=== PATIENT | male | born 1995 | race Caucasian/White ===

== ENCOUNTER 2024-04-30 09:58 | Inpatient (IN) | payer OTHER, SELFPAY ==
[~2024-04-30] VITALS: Ht 165.1 cm; Wt 96.8 kg
[2024-04-30 10:14] VITALS: PULSE 123; RESP 16; O2SAT 97
--- NOTE | 2024-04-30 11:24 | ED.PDOC ---
History of present illness HPI Comments 29-year-old male presents with a chief complaint of nausea and vomiting x onset last night with associated hyperglycemia x 1 week. Patient is also complaing of generalized abdomen pain with frequent urination and thirst. Last HGB A1C was 7.8 x 3 months ago. Accucheck at home registered "HIGH". Chief Complaint: Nausea/Vomiting Time Seen by MD: 10:55 Primary Care Provider: FAMILIA History of present illness: Medications, Allergies Allergies: Coded Allergies: NO KNOWN ALLERGIES (Unverified , 04/30/24) Information Source: Patient Mode of Arrival: Ambulatory Timing: Days Duration: Since onset Prehospital treatment: Accucheck Russell: Shaky Symptoms: Anxious, Shaky History of: Diabetes Associated signs and symptoms: Nausea, Vomiting Past Medical History PAST MEDICAL HISTORY: DM Surgical History: Denies all surgeries Family History Family History: Reviewed,noncontributory to illness Social History Smoker: Non-Smoker Alcohol: Denies ETOH Use Drugs: Denies Drug Use Lives In: Home Constitutional: denies: chills, diaphoresis, fatigue, fever, malaise, sweats, w eakness, others EENTM: denies: blurred vision, double vision, ear bleeding, ear discharge, ear drainage, ear pain, ear ringing, eye pain, eye redness, hearing loss, mouth pain, mouth swelling, nasal discharge, nose bleeding, nose congestion, nose pain, photophobia, tearing, throat pain, throat swelling, voice changes, others Respiratory: denies: cough, hemoptysis, orthopnea, SOB at rest, shortness of breath, SOB with excertion, stridor, wheezing, others Cardiovascular: denies: chest pain, dizzy spells, diaphoresis, Dyspnea on exertion, edema, irregular heart beat, left arm pain, lightheadedness, palpitations, PND, syncope, others Gastrointestinal: reports: nausea, vomiting; denies: abdomen distended, abdominal pain, blood streaked bowels, constipated, diarrhea, dysphagia, difficulty swallowing, hematemesis, melena, poor appetite, poor fluid intake, rectal bleeding, rectal pain, others Genitourinary: denies: burning, dysuria, flank pain, frequency, hematuria, incontinence, penile discharge, penile sore, pain, testicle pain, testicle swelling, urgency, others Neurological: denies: dizziness, fainting, headache, left sided numbness, left sided weakness, numbness, paresthesia, pre-existing deficit, right sided numbness, right sided weakness, seizure, speech problems, tingling, tremors, weakness, others Musculoskeletal: denies: back pain, gout, joint pain, joint swelling, muscle pain, muscle stiffness, neck pain, others Integumetry: denies: bruises, change in color, change in hair/nails, dryness, laceration, lesions, lumps, rash, wounds, others Allergic/Immunocompromised: denies: Difficulty Healing, Frequent Infections, Hives, Itching, others Hematologic/Lymphatic: denies: anemia, blood clots, easy bleeding, easy bruising, swollen glands, others Endocrine: reports: excessive thirst, excessive urination; denies: excessive hu nger, excessive sweating, flushing, intolerance to cold, intolerance to heat, unexplained weight gain, unexplained weight loss, others Psychiatric: denies: anxiety, bipolar disorder, depression, hopeless, panic disorder, schizophrenia, sleepless, suicidal, others All Other Systems: Reviewed and Negative Physical Exam General Appearance: Moderate Distress, Normal HEENT: Normal ENT Inspection Neck: NOT DONE Respiratory: No Respiratory Distress Cardiovascular: Regular Rate/Rhythm Breast Exam: Deferred Gastrointestinal: Non Tender, Soft Genitalia: Deferred Pelvic: Deferred Rectal: Deferred Extremities: No calf tenderness, Normal capillary refill, Normal inspection, Normal range of motion, Non-tender, No pedal edema Neurologic: Alert, meter changes records clerk II-XII nml as Tested, No Motor Deficits, Normal Affect, Normal Mood, No Sensory Deficits Cerebellar Function: NOT DONE Reflexes: NOT DONE Skin: Dry, Normal Color Lymphatic: NOT DONE Was a procedure done? Was a procedure done?: No Differential Diagnosis (DM) Differential Diagnosis: Appendicitis, Gastritis, Gastroenteritis Other Differential Diagnosis Diabetic ketoacidosis, X-Ray, Labs, Meds, VS Vital Signs Date Time Temp Pulse Resp B/P (MAP) Pulse Ox O2 Delivery O2 Flow Rate FiO2 04/30/24 12:46 97.6 110 19 127/81 (96) 97 97.6 04/30/24 10:14 123 16 97 Room Air* 0 21 04/30/24 10:14 97.6 129 18 126/91 (103) 95 97.6 04/30/24 10:10 98.0 134 26 136/81 (99) 98 Lab Test 04/30/24 12:25 04/30/24 12:17 04/30/24 10:07 04/30/24 10:00 Range/Units Blood Gas Specimen Type Arterial Blood Gas Sample Site Left radial Blood Gas Patient Temperature 37.0 Arterial Blood Date Drawn [id number] Arterial Blood pH 7.211 *L 7.350-7.450 Arterial Blood Partial Pressure CO2 17.5 *L 35.0-48.0 mmHg Arterial Blood Partial Pressure O2 115.5 H 83.0-108.0 mmHg Arterial Blood HCO3 6.9 L 21.0-28.0 mmol/L Arterial Blood Oxygen Saturation 97.8 94.0-98.0 % Arterial Blood Base Excess -18.2 L -2.0-3.0 mmol/L Arterial Blood Oxyhemoglobin 96.9 94.0-98.0 % Arterial Blood Carboxyhemoglobin 0.2 L 0.5-1.5 % Arterial Blood Methemoglobin 0.7 0.0-1.5 % Isidro Test Yes Blood Gas Total Hemoglobin 17.90 H 13.5-17.5 g/dL Blood Gas Modality Room air FiO2 % 21.0 Blood Gas Critical Value Read Back Yes Blood Gas Notified Whom Blood Gas Notified Time [id number] Blood Gas Notified By Base Loader one[place] White Blood Count 12.3 H 4.4-10.8 10^3/uL Red Blood Count 6.40 H 4.5-5.90 10^6/uL Hemoglobin 17.9 H 13.5-17.5 g/dL Hematocrit 52.7 41.0-53.0 % Mean Corpuscular Volume 82.3 80.0-100.0 fL Mean Corpuscular Hemoglobin 28.0 28.0-32.0 pg Mean Corpuscular Hemoglobin Concent 34.0 32.0-36.0 g/dL Red Cell Distribution Width 14.9 H 11.8-14.3 % Platelet Count 222 140-450 10^3/uL Mean Platelet Volume 10.1 6.9-10.8 fL Neutrophils (%) (Auto) 84.4 H 37.0-80.0 % Lymphocytes (%) (Auto) 9.2 L 10.0-50.0 % Monocytes (%) (Auto) 6.0 0.0-12.0 % Eosinophils (%) (Auto) 0.1 0.0-7.0 % Basophils (%) (Auto) 0.3 0.0-2.0 % Neutrophils # (Auto) 10.3 H 1.6-8.6 10 ^3/uL Lymphocytes # (Auto) 1.1 0.4-5.4 10 ^3/uL Monocytes # (Auto) 0.7 0-1.3 10 ^3/uL Eosinophils # (Auto) 0 0-0.8 10 ^3/uL Basophils # (Auto) 0 0-0.2 10 ^3/uL Nucleated Red Blood Cells 0.2 % Sodium Level 135 L 136-145 mmol/L Potassium Level 3.9 3.5-5.1 mmol/L Chloride Level 105 98-107 mmol/L Carbon Dioxide Level 11 L 20-31 mmol/L Anion Gap 19 H 5-15 Blood Urea Nitrogen 12 9-23 mg/dL Creatinine 1.12 0.700-1.30 mg/dL Glomerular Filtration Rate Calc 90 >90 mL/min BUN/Creatinine Ratio 10.7 10.0-20.0 Serum Glucose 166 H 74-106 mg/dL Serum Osmolality Pending Lactic Acid Level 1.1 0.4-2.0 mmol/L Calcium Level 9.6 8.7-10.4 mg/dL Phosphorus Level Pending Magnesium Level 2.2 1.6-2.6 mg/dL Total Bilirubin 0.6 0.2-1.0 mg/dL Aspartate Amino Transferase (AST) 21 13-40 U/L Alanine Aminotransferase (ALT) 58 H 7-40 U/L Alkaline Phosphatase 142 H 46-116 U/L Total Protein 9.0 H 5.7-8.2 g/dL Albumin 5.4 H 3.2-4.8 g/dL Beta-Hydroxybutyric Acid > 4.500 H < 0.4 mmol/L POC Glucose 182 H 70-106 mg/dl Urine Color Light-yellow Yellow Urine Clarity Clear Clear Urine pH 5.5 5.0-9.0 Urine Specific [place] 1.025 1.001-1.035 Urine Protein 2+ H Negative Urine Ketones 4+ H Negative Urine Blood 1+ H Negative /uL Urine Nitrite Negative Negative Urine Bilirubin Negative Negative Urine Urobilinogen Normal Negative mg/dL Urine Leukocyte Esterase Negative Negative /uL Urine RBC <1 0 - 3 /hpf Urine Microscopic WBC 1 0-3 /HPF Urine Squamous Epithelial Cells Few <5 /hpf Urine Bacteria Few H None Seen /hpf Urine Hyaline Casts Few 0 - 2 /lpf Urine Mucus Few None Seen Urine Glucose 4+ H Normal mg/dL Current Medications Medications (Trade) Dose Ordered Sig/Nicholas Route Start Time Stop Time Status Last Admin Sodium Chloride 1,000 ml @ 1,000 mls/hr Q1H ONCE IV 04/30/24 12:00 04/30/24 13:01 DC 04/30/24 12:07 Time of 1ST Reevaluation: 11:25 Reevaluation 1ST: Unchanged Patient Education/Counseling: Diagnosis, Treatment, Prognosis Family Education/Counseling: Diagnosis, Treatment, Prognosis Departure 1 Departure Time of Disposition: 14:43 Impression: Primary Impression: Diabetic ketoacidosis Disposition: 09 ADMITTED INPATIENT Condition: Critical Critical Care Note Critical Care Time?: No Stability Stability form required: No Heart Score Heart Score: Heart Score Response (Comments) Value History N/A 0 EKG N/A 0 Age N/A 0 Risk Factors N/A 0 Troponin N/A 0 Total 0 I personally scribed for DESTINY ANTUNEZ MD ([email or web address]) on 04/30/24 at 11:24. Electronically submitted by Telly Rehman ([email or web address]). DESTINY ANTUNEZ MD Apr 30, 2024 11:24
[2024-04-30] MEDS: SODIUM CHLORIDE 0.9% 1,000 ML IV ONE (12:07)
[2024-04-30 12:26] LABS: Basophils # (auto) 0 10 ^3/uL (0-0.2); Eosinophils # (auto) 0 10 ^3/uL (0-0.8); Hemoglobin 17.9 g/dL (13.5-17.5); Red Cell Distribution Width 14.9 % (11.8-14.3)
[2024-04-30 12:28] LABS: Basophils % (auto) 0.3 % (0.0-2.0); Eosinophils % (auto) 0.1 % (0.0-7.0); Hematocrit 52.7 % (41.0-53.0); Lymphocytes # (auto) 1.1 10 ^3/uL (0.4-5.4); Lymphocytes % (auto) 9.2 % (10.0-50.0); Mean Corpuscular Volume 82.3 fL (80.0-100.0); Monocytes # (auto) 0.7 10 ^3/uL (0-1.3); Neutrophils # (auto) 10.3 10 ^3/uL (1.6-8.6); Neutrophils % (auto) 84.4 % (37.0-80.0); Nucleated Red Blood Cells % 0.2 %; Platelet Count (auto) 222 10^3/uL (140-450); White Blood Cell 12.3 10^3/uL (4.4-10.8)
[2024-04-30 12:30] LABS: Base Excess -18.2 mmol/L (-2.0-3.0)
[2024-04-30 12:44] LABS: Anion Gap 19 (5-15); Aspartate Aminotransferase 21 U/L (13-40); BUN/Creatinine Ratio 10.7 (10.0-20.0); Blood Urea Nitrogen 12 mg/dL (9-23); Calcium 9.6 mg/dL (8.7-10.4); Chloride 105 mmol/L (98-107); Magnesium 2.2 mg/dL (1.6-2.6); Potassium 3.9 mmol/L (3.5-5.1)
[2024-04-30 12:45] LABS: Alanine Aminotransferase 58 U/L (7-40); Albumin 5.4 g/dL (3.2-4.8); Alkaline Phosphatase 142 U/L (46-116); Bilirubin, Total 0.6 mg/dL (0.2-1.0); Carbon Dioxide 11 mmol/L (20-31); Glucose 166 mg/dL (74-106); Sodium 135 mmol/L (136-145)
[2024-04-30 13:56] LABS: Urine Bacteria FEW /hpf (None Seen); Urine Blood 1+ /uL (Negative); Urine Clarity Clear (Clear); Urine Color Light-Yellow (Yellow); Urine Hyaline Cast FEW /lpf (0 - 2); Urine Mucus FEW (None Seen); Urine Protein, UAD 2+ (Negative); Urine Specific Gravity 1.025 (1.001-1.035); Urine Squamous Epithelial Cell FEW /hpf (<5); Urine Urobilinogen Normal (Negative); Urine WBC 1 /HPF (0-3); Urine pH 5.5 (5.0-9.0)
[2024-04-30] MEDS ORDERED: DEXTROSE (50%) 50ML SYRG IV PRN (14:45)
[2024-04-30] MEDS: ONDANSETRON HCL 4 MG/2 ML VIAL IV ONE (15:52)
[2024-04-30 16:44] VITALS: PULSE 117; RESP 24; O2SAT 98
[2024-04-30 16:49] LABS: Chloride 106 mmol/L (98-107); Potassium 4.2 mmol/L (3.5-5.1); Sodium 136 mmol/L (136-145)
[2024-04-30 16:50] LABS: Anion Gap 17 (5-15); Calcium 9.5 mg/dL (8.7-10.4)
[2024-04-30] MEDS: MAGNESIUM SULFATE 1GM/100ML 200 ML IV ONE (16:51)
[2024-04-30 16:55] LABS: BUN/Creatinine Ratio 10.3 (10.0-20.0); Blood Urea Nitrogen 12 mg/dL (9-23); Carbon Dioxide 13 mmol/L (20-31); Glucose 148 mg/dL (74-106)
[2024-04-30] MEDS: ACCU-CHEK COMFORT CURVE STRIP VI SCH (17:16)
[2024-04-30] MEDS: INSULIN DRIP 100 UNIT/100ML 100 ML IV SCH (17:17)
[2024-04-30] MEDS: D5W 5% 1,000 ML IV ONE (17:21)
[2024-04-30] MEDS ORDERED: ACETAMINOPHEN 325 MG TAB PO PRN (18:00)
[2024-04-30] MEDS ORDERED: ONDANSETRON HCL 4 MG/2 ML VIAL IV PRN (18:00)
--- NOTE | 2024-04-30 18:03 | DVHHP2 ---
History of Present Illness Reason for Visit: Elevated blood sugar History of Present Illness Garth Allen is a 29-year-old male with past medical history of hyperlipidemia and diabetes who presents to the ED for hyperglycemia, nausea, and vomiting x1 day. Patient reports that 4 days ago he had epigastric pain but has since been relieved since yesterday. Patient also reports that he vomited brown contents. When asked about his diabetes he states that he was supposed to take metformin but he just does not care anymore. Mom at the bedside and she states that when he was trying to take his rating on the Accu-Chek it was over the limits. Patient denies any chest pain, shortness of breath, fever, chills, lightheadedness, weakness, dizziness, thirst, hunger, shakiness, tremors, and tingling. Patient also reported that he made a PCP appointment for May 10. Cardiovascular: hyperipidemia Endocrine: Diabetes Past Surgical History: None Family History: DM, Other (Dad with diabetes) Smoke: No ALCOHOL: occassional Drugs: None Lives: with Family Domestic Violence: Neg Review of Systems Constitutional: Yes: Other (Elevated blood sugar); No: Fever, Chills, Sweats, Weakness, Malaise Eyes: No: Pain, Vision change, Conjunctivae inflammation, Eyelid inflammation, Other, Redness ENT: No: Ear pain, Ear discharge, Nose pain, Nose discharge, Nose congestion, Mouth pain, Mouth swelling, Throat pain, Throat swelling, Other Respiratory: No: Cough, Dry, Shortness of breath, SOB with excertion, Wheezing, Hemoptysis, Pleuritic Pain, Sputum, Wheezing, Other Cardiovascular: No: Chest Pain, Palpitations, Orthopnea, Paroxysmal Noc. Dyspnea, Edema, Lt Headedness, Other Gastrointestinal: Nausea, Vomiting; No: Abdominal Pain, Diarrhea, Constipation, Melena, Hematochezia, Other Genitourinary: No Dysuria, No Frequency, No Incontinence, No Hematuria, No Retention, No Other Musculoskeletal: No: other, neck pain, shoulder pain, arm pain, back pain, hand pain, leg pain, foot pain Skin: No: Rash, Lesions, Jaundice, Bruising, Other Neurological: No: Weakness, Numbness, Incoordination, Change in speech, Confusion, Seizures, Other Allergies: Coded Allergies: NO KNOWN ALLERGIES (Unverified , 04/30/24) Medications Current Medications Medications Dose Ordered Sig/Nicholas Route Start Time Stop Time Status Last Admin Dose Admin Sodium Chloride 1,000 ml @ 500 mls/hr Q2H IV 04/30/24 14:45 04/30/24 18:44 Insulin Human (Reg)/Sodium Chloride 100 ml @ 0.5 mls/hr Q24H IV 04/30/24 14:45 04/30/24 17:17 1.5 MLS/HR Dextrose 50 ml UD PRN IV 04/30/24 14:45 Diagnostic Test (Pha) 1 strip Q90MIN 04/30/24 15:00 04/30/24 17:16 1 STRIP Exam Vital Signs Vital Signs Date Time Temp Pulse Resp B/P (MAP) Pulse Ox O2 Delivery O2 Flow Rate FiO2 04/30/24 16:44 117 24 98 Room Air* 0 21 04/30/24 12:46 97.6 127/81 (96) 97.6 General Appearance: Alert, Oriented X3, Cooperative, No acute distress HEENT: Atraumatic, PERRLA, EOMI, Mucous membr. moist/pink Respiratory: Clear to auscultation, Normal air movement Cardiovascular: Regular rate, Normal S1, Normal S2, No murmurs Abdominal: Normal bowel sounds, Soft, No tenderness, No hepatospenomegaly, No masses Extremities: No clubbing, No cyanosis, No edema, Normal pulses, No tenderness/ swelling Skin: No rashes, No breakdown, No significant lesion Neuro: Normal gait, Normal speech, Strength at 5/5 X4 ext, Normal tone, Sensation intact Psych/Mental Status: Mental status NL, Mood NL Labs/Xrays Labs Test 04/30/24 17:14 04/30/24 15:39 04/30/24 12:25 04/30/24 12:17 Range/Units POC Glucose 158 H 70-106 mg/dl Sodium Level 136 136-145 mmol/L Potassium Level 4.2 3.5-5.1 mmol/L Chloride Level 106 98-107 mmol/L Carbon Dioxide Level 13 L 20-31 mmol/L Anion Gap 17 H 5-15 Blood Urea Nitrogen 12 9-23 mg/dL Creatinine 1.16 0.700-1.30 mg/dL Glomerular Filtration Rate Calc 86 >90 mL/min BUN/Creatinine Ratio 10.3 10.0-20.0 Serum Glucose 148 H 74-106 mg/dL Serum Osmolality 302 H 278-298 mOsm/kg Calcium Level 9.5 8.7-10.4 mg/dL Blood Gas Specimen Type Arterial Blood Gas Sample Site Left radial Blood Gas Patient Temperature 37.0 Arterial Blood Date Drawn [id number] Arterial Blood pH 7.211 *L 7.350-7.450 Arterial Blood Partial Pressure CO2 17.5 *L 35.0-48.0 mmHg Arterial Blood Partial Pressure O2 115.5 H 83.0-108.0 mmHg Arterial Blood HCO3 6.9 L 21.0-28.0 mmol/L Arterial Blood Oxygen Saturation 97.8 94.0-98.0 % Arterial Blood Base Excess -18.2 L -2.0-3.0 mmol/L Arterial Blood Oxyhemoglobin 96.9 94.0-98.0 % Arterial Blood Carboxyhemoglobin 0.2 L 0.5-1.5 % Arterial Blood Methemoglobin 0.7 0.0-1.5 % Isidro Test Yes Blood Gas Total Hemoglobin 17.90 H 13.5-17.5 g/dL Blood Gas Modality Room air FiO2 % 21.0 Blood Gas Critical Value Read Back Yes Blood Gas Notified Whom Blood Gas Notified Time [id number] Blood Gas Notified By Marshall mohamud White Blood Count 12.3 H 4.4-10.8 10^3/uL Red Blood Count 6.40 H 4.5-5.90 10^6/uL Hemoglobin 17.9 H 13.5-17.5 g/dL Hematocrit 52.7 41.0-53.0 % Mean Corpuscular Volume 82.3 80.0-100.0 fL Mean Corpuscular Hemoglobin 28.0 28.0-32.0 pg Mean Corpuscular Hemoglobin Concent 34.0 32.0-36.0 g/dL Red Cell Distribution Width 14.9 H 11.8-14.3 % Platelet Count 222 140-450 10^3/uL Mean Platelet Volume 10.1 6.9-10.8 fL Neutrophils (%) (Auto) 84.4 H 37.0-80.0 % Lymphocytes (%) (Auto) 9.2 L 10.0-50.0 % Monocytes (%) (Auto) 6.0 0.0-12.0 % Eosinophils (%) (Auto) 0.1 0.0-7.0 % Basophils (%) (Auto) 0.3 0.0-2.0 % Neutrophils # (Auto) 10.3 H 1.6-8.6 10 ^3/uL Lymphocytes # (Auto) 1.1 0.4-5.4 10 ^3/uL Monocytes # (Auto) 0.7 0-1.3 10 ^3/uL Eosinophils # (Auto) 0 0-0.8 10 ^3/uL Basophils # (Auto) 0 0-0.2 10 ^3/uL Nucleated Red Blood Cells 0.2 % Lactic Acid Level 1.1 0.4-2.0 mmol/L Phosphorus Level 3.3 2.4-5.1 mg/dL Magnesium Level 2.2 1.6-2.6 mg/dL Total Bilirubin 0.6 0.2-1.0 mg/dL Aspartate Amino Transferase (AST) 21 13-40 U/L Alanine Aminotransferase (ALT) 58 H 7-40 U/L Alkaline Phosphatase 142 H 46-116 U/L Total Protein 9.0 H 5.7-8.2 g/dL Albumin 5.4 H 3.2-4.8 g/dL Beta-Hydroxybutyric Acid > 4.500 H < 0.4 mmol/L Test 04/30/24 10:00 Range/Units Urine Color Light-yellow Yellow Urine Clarity Clear Clear Urine pH 5.5 5.0-9.0 Urine Specific [place] 1.025 1.001-1.035 Urine Protein 2+ H Negative Urine Ketones 4+ H Negative Urine Blood 1+ H Negative /uL Urine Nitrite Negative Negative Urine Bilirubin Negative Negative Urine Urobilinogen Normal Negative mg/dL Urine Leukocyte Esterase Negative Negative /uL Urine RBC <1 0 - 3 /hpf Urine Microscopic WBC 1 0-3 /HPF Urine Squamous Epithelial Cells Few <5 /hpf Urine Bacteria Few H None Seen /hpf Urine Hyaline Casts Few 0 - 2 /lpf Urine Mucus Few None Seen Urine Glucose 4+ H Normal mg/dL Assessment/Plan Assessment/Plan Assessment/Plan: DKA with uncontrolled DM Type 2 Lactic acidosis d/t uncontrolled DM2 Insulin drip protocol Anion gap open HgbA1C ISS and accuchecks UA Dextrose given in ED Antiemetics Mag Mag sulfate NS 2 L given in ED BNP Neuro checks ABG Osmolality Phos IV fluids A.m. labs Beta hydroxy seed pelleter IV antibiotics-ceftriaxone Chronic hyperlipidemia Continue home medication FEN/PPX Diet ivf PUD ppx Protonix DVT ppx not indicated patient ambulating Plan discussed with: Patient, Other Date of Service: Apr 30, 2024 Billing Provider: JOSIAH JUDGE Common Visit Codes: [id number] INP/OBS CARE (HIGH) JOSIAH JUDGE Apr 30, 2024 18:03
[2024-04-30] MEDS ORDERED: CALC0.5C PO (18:04)
[2024-04-30] MEDS ORDERED: ATOR20TA50 (18:04)
[2024-04-30] MEDS: SODIUM CHLORIDE 0.9% 1,000 ML IV SCH ×2 (18:21→19:40)
[2024-04-30 19:04] LABS: Potassium 3.8 mmol/L (3.5-5.1); Sodium 137 mmol/L (136-145)
[2024-04-30 19:05] LABS: Anion Gap 18 (5-15)
[2024-04-30] MEDS: cefTRIAXone 1GM/50ML D5W 50 ML IV ONE (19:09)
[2024-04-30 19:10] LABS: BUN/Creatinine Ratio 9.8 (10.0-20.0); Blood Urea Nitrogen 9 mg/dL (9-23)
[2024-04-30 19:11] LABS: Calcium 8.6 mg/dL (8.7-10.4); Carbon Dioxide 10 mmol/L (20-31); Chloride 109 mmol/L (98-107); Glucose 137 mg/dL (74-106)
[2024-05-01 03:24] LABS: Basophils # (auto) 0 10 ^3/uL (0-0.2); Basophils % (auto) 0.5 % (0.0-2.0); Eosinophils # (auto) 0 10 ^3/uL (0-0.8); Eosinophils % (auto) 0.4 % (0.0-7.0); Hematocrit 44.4 % (41.0-53.0); Hemoglobin 15.1 g/dL (13.5-17.5); Lymphocytes # (auto) 1.6 10 ^3/uL (0.4-5.4); Lymphocytes % (auto) 16.5 % (10.0-50.0); Mean Corpuscular Hemoglobin 27.9 pg (28.0-32.0); Mean Corpuscular Volume 82.1 fL (80.0-100.0); Monocytes # (auto) 1.2 10 ^3/uL (0-1.3); Monocytes % (auto) 12.4 % (0.0-12.0); Neutrophils # (auto) 6.9 10 ^3/uL (1.6-8.6); Neutrophils % (auto) 70.2 % (37.0-80.0); Nucleated Red Blood Cells % 0.1 %; Platelet Count (auto) 173 10^3/uL (140-450); Red Blood Cells 5.41 10^6/uL (4.5-5.90); Red Cell Distribution Width 14.7 % (11.8-14.3); White Blood Cell 9.9 10^3/uL (4.4-10.8)
[2024-05-01 03:39] LABS: Alkaline Phosphatase 100 U/L (46-116); Anion Gap 14 (5-15); Aspartate Aminotransferase 16 U/L (13-40); BUN/Creatinine Ratio 11.8 (10.0-20.0); Blood Urea Nitrogen 11 mg/dL (9-23); Sodium 136 mmol/L (136-145)
[2024-05-01 03:40] LABS: Albumin 4.2 g/dL (3.2-4.8); Bilirubin, Total 0.5 mg/dL (0.2-1.0)
[2024-05-01 03:48] LABS: Alanine Aminotransferase 43 U/L (7-40); Calcium 8.5 mg/dL (8.7-10.4); Carbon Dioxide 12 mmol/L (20-31); Chloride 110 mmol/L (98-107); Glucose 151 mg/dL (74-106); Potassium 3.2 mmol/L (3.5-5.1)
[2024-05-01] MEDS ORDERED: DEXTROSE (50%) 50ML SYRG IV PRN (04:45)
[2024-05-01] MEDS: POTASSIUM CHL 20 Meq TABLET PO ONE (05:00)
[2024-05-01] MEDS: D5W/SOD CHL 0.45% 1,000 ML IV SCH (05:02)
[2024-05-01 08:02] VITALS: PULSE 123; RESP 16; O2SAT 97
[2024-05-01] MEDS: ACCU-CHEK COMFORT CURVE STRIP VI SCH (08:06)
[2024-05-01] MEDS: InsuLIN REG 1unit/0.01ml Soln (100units/ml) SC SCH (08:09)
[2024-05-01] MEDS: SODIUM CHLORIDE 0.9% 1,000 ML IV SCH (09:00)
[2024-05-01] MEDS: cefTRIAXone 1GM/50ML D5W 50 ML IV SCH (09:05)
[2024-05-01 09:27] LABS: Sodium 136 mmol/L (136-145)
[2024-05-01 09:28] LABS: Anion Gap 14 (5-15)
[2024-05-01 09:33] LABS: BUN/Creatinine Ratio 9.8 (10.0-20.0); Blood Urea Nitrogen 10 mg/dL (9-23)
[2024-05-01 09:38] LABS: Calcium 8.5 mg/dL (8.7-10.4); Carbon Dioxide 14 mmol/L (20-31); Chloride 108 mmol/L (98-107); Glucose 192 mg/dL (74-106); Potassium 3.5 mmol/L (3.5-5.1)
[2024-05-01] MEDS: PANTOPRAZOLE 40 MG/10 ML VIAL INJ IV SCH ×2 (10:16→21:35)
[2024-05-01 11:37] VITALS: BP 108/70; PULSE 123; RESP 16; TEMP 98; O2SAT 97
--- NOTE | 2024-05-01 13:11 | DVHPN2 ---
Subjective Patient is seen and examined at bedside. Complain of heartburn. Reviewed: Care Plan, H&P, Labs, Medications, Previous Orders, Radiology Changes from previous H/P or p: No Changes Eyes: No Pain, No Vision change, No Conjunctivae inflammation, No Eyelid inflammation, No Other, No Redness ENT: No Ear pain, No Ear discharge, No Nose pain, No Nose discharge, No Nose congestion, No Mouth pain, No Mouth swelling, No Throat pain, No Throat swelling, No Other Cardiovascular: No Chest Pain, No Palpitations, No Orthopnea, No Paroxysmal Noc. Dyspnea, No Edema, No Lt Headedness, No Other Respiratory: No Cough, No Dry, No Shortness of breath, No SOB with excertion, No Wheezing, No Hemoptysis, No Pleuritic Pain, No Sputum, No Other Gastrointestinal: Nausea, Vomiting; No Abdominal Pain, No Diarrhea, No Constipation, No Melena, No Hematochezia, No Other Genitourinary: No Dysuria, No Frequency, No Incontinence, No Hematuria, No Retention, No Other Musculoskeletal: No other, No neck pain, No shoulder pain, No arm pain, No back pain, No hand pain, No leg pain, No foot pain Skin: No Rash, No Lesions, No Jaundice, No Bruising, No Other Objective Vitals Vital Signs Date Time Temp Pulse Resp B/P (MAP) Pulse Ox O2 Delivery O2 Flow Rate FiO2 05/01/24 12:36 99 20 115/66 (82) 95 05/01/24 11:37 98.0 98.0 05/01/24 08:02 Room Air* 0 21 Intake/Output Intake and Output 05/01/24 07:00 Intake Total 3051.025 ml Output Total 1000 ml Balance 2051.025 ml Intake IV Total 3051.025 ml Output Urine Total 1000 ml General Appearance: Alert, Oriented X3, Cooperative, No acute distress HEENT: Atraumatic, PERRLA, EOMI, Mucous membr. moist/pink Lungs: Clear to auscultation Cardiovascular: Regular rate, Normal S1, Normal S2, No murmurs, Gallops, Rubs Abdomen: Normal bowel sounds, Soft, No tenderness Neuro: Cranial nerves 3-12 NL Psych/Mental Status: Mental status NL Medications Current Medications Medications Dose Ordered Sig/Nicholas Route Start Time Stop Time Status Last Admin Dose Admin Ondansetron HCl 4 mg Q4HP PRN IV 04/30/24 18:00 Acetaminophen 650 mg Q6HP PRN PO 04/30/24 18:00 Ceftriaxone Sodium 50 ml @ 100 mls/hr DAILY@09 IV 05/01/24 09:00 05/01/24 09:05 100 MLS/HR Pantoprazole Sodium 40 mg DAILY IV 05/01/24 10:00 05/01/24 10:16 40 MG Diagnostic Test (Pha) 1 strip IQ4HR 05/01/24 08:00 05/01/24 12:00 1 STRIP Insulin Human Regular IQ4HR SC 05/01/24 08:00 05/01/24 12:00 9 UNITS Dextrose 50 ml UD PRN IV 05/01/24 04:45 Sodium Chloride 1,000 ml @ 100 mls/hr Q10H IV 05/01/24 08:45 05/01/24 09:00 100 MLS/HR Laboratory Results Laboratory Tests 05/01/24 02:44 05/01/24 08:36 Chemistry Test 04/30/24 15:39 04/30/24 18:44 05/01/24 02:44 05/01/24 08:36 Calcium Level 9.5 mg/dL (8.7-10.4) 8.6 mg/dL (8.7-10.4) L 8.5 mg/dL (8.7-10.4) L 8.5 mg/dL (8.7-10.4) L Albumin 4.2 g/dL (3.2-4.8) Total Protein 7.0 g/dL (5.7-8.2) LFT Test 05/01/24 02:44 Alanine Aminotransferase (ALT) 43 U/L (7-40) H Alkaline Phosphatase 100 U/L (46-116) Aspartate Amino Transferase (AST) 16 U/L (13-40) Total Bilirubin 0.5 mg/dL (0.2-1.0) HgA1c, TSH Test 04/30/24 15:34 Hemoglobin A1c 10.4 % A1C (<5.7) H Urinalysis Test 04/30/24 10:00 Urine Color Light-yellow (Yellow) Urine Clarity Clear (Clear) Urine pH 5.5 (5.0-9.0) Urine Specific [place] 1.025 (1.001-1.035) Urine Protein 2+ (Negative) H Urine Ketones 4+ (Negative) H Urine Blood 1+ /uL (Negative) H Urine Nitrite Negative (Negative) Urine Bilirubin Negative (Negative) Urine Urobilinogen Normal mg/dL (Negative) Urine Leukocyte Esterase Negative /uL (Negative) Urine RBC <1 /hpf (0 - 3) Urine Microscopic WBC 1 /HPF (0-3) Urine Squamous Epithelial Cells Few /hpf (<5) Urine Bacteria Few /hpf (None Seen) H Urine Hyaline Casts Few /lpf (0 - 2) Urine Mucus Few (None Seen) Urine Glucose 4+ mg/dL (Normal) H Labs and/or images reviewed: Labs reviewed by me Assessment/Plan Assessment/Plan DKA with uncontrolled DM Type 2 Lactic acidosis d/t uncontrolled DM2 Chronic hyperlipidemia Continuing current management. Continuing with sliding scale insulin. I will add Lantus 20 units subQ q.h.s.. Discussed with patient regarding to her medication. Discharge planning This medical document was created using an electronic medical record system with [employer] direct computerized dictation system. Although this document has been carefully reviewed, there may still be some phonetic and typographical errors. These areas are purely typographical due to imperfections of the software programs, and do not reflect any compromise in the patient's medical care. Plan discussed with: Patient, Other (mother) Date of Service: May 01, 2024 Billing Provider: DENIA REA MD Common Visit Codes: [id number] INP/OBS CARE(HIGH) DENIA REA MD May 01, 2024 13:11
[2024-05-01 14:32] VITALS: BP 119/84; PULSE 97; RESP 16; TEMP 98.7; O2SAT 96
[2024-05-01 16:34] VITALS: BP 128/81; PULSE 108; RESP 17; TEMP 98; O2SAT 97
[2024-05-01 20:00] VITALS: RESP 18; O2SAT 99
[2024-05-01 21:00] VITALS: BP 134/78; PULSE 114; RESP 18; TEMP 98.4; O2SAT 96
[2024-05-01] MEDS: INSULIN LANTUS (GLARGINE) 1 /0.01ml (100units/ml) SC SCH (23:11)
[2024-05-02 01:00] VITALS: BP 127/71; PULSE 107; RESP 18; TEMP 98.1; O2SAT 95
[2024-05-02 05:00] VITALS: BP 116/68; PULSE 91; RESP 18; TEMP 97.6; O2SAT 97
[2024-05-02] MEDS ORDERED: METF-371 PO (08:40)
[2024-05-02] MEDS ORDERED: [UNRECOGNIZED DRUG - CODE] XX (08:40)
[2024-05-02] MEDS ORDERED: METF-372 PO (08:40)
[2024-05-02] MEDS ORDERED: INSU1.2I SC (08:40)
[2024-05-02] MEDS ORDERED: GLIP10TA9 PO (08:40)
[2024-05-02 09:00] VITALS: BP 121/79; PULSE 97; RESP 18; TEMP 98.2; O2SAT 99
--- NOTE | 2024-05-02 12:27 | DVHDS2 ---
Discharge Summary Date of Admission Apr 30, 2024 at 17:52 Date of Discharge: May 02, 2024 Admitting Diagnosis DKA with uncontrolled DM Type 2 Lactic acidosis d/t uncontrolled DM2 Chronic hyperlipidemia Labs/Diagnostic Data: Laboratory Results Test 05/02/24 12:04 05/01/24 08:36 05/01/24 02:44 04/30/24 15:39 POC Glucose 202 mg/dl (70-106) Sodium Level 136 mmol/L (136-145) Potassium Level 3.5 mmol/L (3.5-5.1) Chloride Level 108 mmol/L (98-107) Carbon Dioxide Level 14 mmol/L (20-31) Anion Gap 14 (5-15) Blood Urea Nitrogen 10 mg/dL (9-23) Creatinine 1.02 mg/dL (0.700-1.30) Glomerular Filtration Rate Calc 101 mL/min (>90) BUN/Creatinine Ratio 9.8 (10.0-20.0) Serum Glucose 192 mg/dL (74-106) Calcium Level 8.5 mg/dL (8.7-10.4) White Blood Count 9.9 10^3/uL (4.4-10.8) Red Blood Count 5.41 10^6/uL (4.5-5.90) Hemoglobin 15.1 g/dL (13.5-17.5) Hematocrit 44.4 % (41.0-53.0) Mean Corpuscular Volume 82.1 fL (80.0-100.0) Mean Corpuscular Hemoglobin 27.9 pg (28.0-32.0) Mean Corpuscular Hemoglobin Concent 34.0 g/dL (32.0-36.0) Red Cell Distribution Width 14.7 % (11.8-14.3) Platelet Count 173 10^3/uL (140-450) Mean Platelet Volume 10.5 fL (6.9-10.8) Neutrophils (%) (Auto) 70.2 % (37.0-80.0) Lymphocytes (%) (Auto) 16.5 % (10.0-50.0) Monocytes (%) (Auto) 12.4 % (0.0-12.0) Eosinophils (%) (Auto) 0.4 % (0.0-7.0) Basophils (%) (Auto) 0.5 % (0.0-2.0) Neutrophils # (Auto) 6.9 10 ^3/uL (1.6-8.6) Lymphocytes # (Auto) 1.6 10 ^3/uL (0.4-5.4) Monocytes # (Auto) 1.2 10 ^3/uL (0-1.3) Eosinophils # (Auto) 0 10 ^3/uL (0-0.8) Basophils # (Auto) 0 10 ^3/uL (0-0.2) Nucleated Red Blood Cells 0.1 % Total Bilirubin 0.5 mg/dL (0.2-1.0) Aspartate Amino Transferase (AST) 16 U/L (13-40) Alanine Aminotransferase (ALT) 43 U/L (7-40) Alkaline Phosphatase 100 U/L (46-116) Total Protein 7.0 g/dL (5.7-8.2) Albumin 4.2 g/dL (3.2-4.8) Serum Osmolality 302 mOsm/kg (278-298) Test 04/30/24 15:34 04/30/24 12:25 04/30/24 12:17 04/30/24 10:00 Hemoglobin A1c 10.4 % A1C (<5.7) Blood Gas Specimen Type Arterial Blood Gas Sample Site Left radial Blood Gas Patient Temperature 37.0 Arterial Blood Date Drawn [id number] Arterial Blood pH 7.211 (7.350-7.450) Arterial Blood Partial Pressure CO2 17.5 mmHg (35.0-48.0) Arterial Blood Partial Pressure O2 115.5 mmHg (83.0-108.0) Arterial Blood HCO3 6.9 mmol/L (21.0-28.0) Arterial Blood Oxygen Saturation 97.8 % (94.0-98.0) Arterial Blood Base Excess -18.2 mmol/L (-2.0-3.0) Arterial Blood Oxyhemoglobin 96.9 % (94.0-98.0) Arterial Blood Carboxyhemoglobin 0.2 % (0.5-1.5) Arterial Blood Methemoglobin 0.7 % (0.0-1.5) Isidro Test Yes Blood Gas Total Hemoglobin 17.90 g/dL (13.5-17.5) Blood Gas Modality Room air FiO2 % 21.0 Blood Gas Critical Value Read Back Yes Blood Gas Notified Whom Blood Gas Notified Time [id number] Blood Gas Notified By Supervisor [employer] [place] Lactic Acid Level 1.1 mmol/L (0.4-2.0) Phosphorus Level 3.3 mg/dL (2.4-5.1) Magnesium Level 2.2 mg/dL (1.6-2.6) B-Type Natriuretic Peptide 6.24 pg/mL (0-100) Beta-Hydroxybutyric Acid > 4.500 mmol/L (< 0.4) Urine Color Light-yellow (Yellow) Urine Clarity Clear (Clear) Urine pH 5.5 (5.0-9.0) Urine Specific [place] 1.025 (1.001-1.035) Urine Protein 2+ (Negative) Urine Ketones 4+ (Negative) Urine Blood 1+ /uL (Negative) Urine Nitrite Negative (Negative) Urine Bilirubin Negative (Negative) Urine Urobilinogen Normal mg/dL (Negative) Urine Leukocyte Esterase Negative /uL (Negative) Urine RBC <1 /hpf (0 - 3) Urine Microscopic WBC 1 /HPF (0-3) Urine Squamous Epithelial Cells Few /hpf (<5) Urine Bacteria Few /hpf (None Seen) Urine Hyaline Casts Few /lpf (0 - 2) Urine Mucus Few (None Seen) Urine Glucose 4+ mg/dL (Normal) Other Laboratory Tests 05/01/24 08:36 05/01/24 02:44 Brief Hx & Hospital Course: This is a 29 years old male with past medical history of hyperlipidemia and diabetes type 2 come to emergency department because of nausea and vomiting and hyperglycemia. Patient have epigastric pain four days prior to admission. Patient had vomited multiple times. Regarding to his diabetes he continuing to take metformin however had skip and does not care about the medication. So when he started vomiting his mom insists he had to do a sugar check. He saw that his Accu-Chek is over limited so his mom wanted him to come to hospital for further evaluation. He is supposed to see his primary care physician in May 10. In the hospital the patient was found to have DKA. The patient was put on insulin drip and subsequently was switched to Lantus and sliding scale insulin. His blood glucose better controlled. I will restart his metformin and add glipizide. I also add Lantus for his regimen and advised him to follow up with his primary care physician 1-2 weeks. Advised him to compliant with medical treatment especially with diabetes medication. The patient verbally understand and stated that he does not want in a have the feeling of DKA ever again. I am discharge the patient home. Activity as tolerated. Diet per home diet. Recommend low-salt low-cholesterol low carb diet. Physical exam: HEENT: Normocephalic atraumatic pupils equal react to light and accommodation. Extraocular muscles intact, conjunctiva pink, oropharynx moist, no thrush, no exudate. Lymphatic: No lymphadenopathy Cardiovascular exam: S1, S2 was heard. No murmurs, rubs, gallops Lung: Clear on auscultation bilaterally, no wheeze, rale, rhonchi. GI: Abdominal soft, nondistended, nontenderness, positive bowel sounds. Extremity: No crepitus, cyanosis, edema. Pedal pulses present bilateral. Full range of motion. Skin: Normal turgor, no rash. Psych: Alert, oriented x3. Neurology: No focal deficits, cranial nerve II to XII grossly intact. This medical document was created using an electronic medical record system with [employer] direct computerized dictation system. Although this document has been carefully reviewed, there may still be some phonetic and typographical errors. These areas are purely typographical due to imperfections of the software programs, and do not reflect any compromise in the patient's medical care. Condition at Discharge: Stable Final Diagnosis/Problems List DKA with uncontrolled DM Type 2 Lactic acidosis d/t uncontrolled DM2 Chronic hyperlipidemia Discharge Disposition: Home Discharge Instruct/Medications Diet: Regular Activity: No Restrictions, As Tolerated Follow Up/Referral: pcp 1-2 weeks Medications: see med list. Discharge Statement: "Patient was advised to return to the ER or call 911 if any headaches, dizziness, shortness of breath, chest pain, abdominal pain, bleeding, fevers, or worsening of medical condition. Patient was counseled about treatment plan, medications, possible side effects, patientverbalized understanding. All questions were answered to the best of my ability. This discharge took greater then 30 minutes in planning, reviewing documentation, counseling the patient, and discussing with other team members." ASSESSMENT ASSESSMENT Assessment DKA Date of Service: May 02, 2024 Billing Provider: DENIA REA MD Common Visit Codes: 28017-ITB/OBS DISCH DAY >30min DENIA REA MD May 02, 2024 12:27
[2024-05-02 13:00] VITALS: BP 119/84; PULSE 98; RESP 16; TEMP 98.2; O2SAT 97
== END 2024-05-02 15:56 | disposition home or self-care (01) | DRG 639 ==
LOC: ER 09:58 → OVERFLOW 17:52 → TELE-CENTR 05-01 14:10 → CENTRAL 05-01 14:12
PROVIDERS: ADMIT Internal Medicine
DX: E11.10 Type 2 diabetes mellitus with ketoacidosis without coma (principal); E78.5 Hyperlipidemia, unspecified; Z79.4 Long term (current) use of insulin; Z83.3 Family history of diabetes mellitus; Z79.899 Other long term (current) drug therapy
CPT/HCPCS: 36415; 36600; 80048; 80053; 81001; 82010; 82805; 82962; 83036; 83605; 83735; 83880; 83930; 84100; 85025; 96365; 96367; 96368; 96375; G0378; J1815; J2405; J2470